=== PATIENT | male | born 2000 | race Caucasian/White ===

== ENCOUNTER 2023-01-25 11:34 | Emergency (ER) | payer OTHER, SELFPAY ==
[2023-01-25 11:44] VITALS: BP 128/70; PULSE 78; RESP 16; TEMP 36.7; O2SAT 100
--- NOTE | 2023-01-25 12:23 | ED.EYEPROB ---
HPI - Eye Problem General Chief complaint: Eye Problems Stated complaint: rt eye irritation Time Seen by Provider: 01/25/23 12:18 Source: patient, RN notes reviewed and old records reviewed Mode of arrival: ambulatory Limitations: no limitations History of Present Illness HPI Narrative: 22 year old male who presents to [facility] care with complaints of 9 day history of red irritated eyes especially his right. Patient denies any drainage from eyes or any morning crusting. He reports that he took Claritin and he has been taking some OTC allergy eye drops 2x day which has helped but has not resolved his symptoms. Patient reports that his eyes feel irritated and dry, reports that initially eyes were itchy but that has improved. Patient denies any known foreign body feeling or any change in vision. MD chief complaint: eye redness Onset (ago): day(s) (9) Treatments Prior to Arrival: other (allergy eye drops, Claritin) Related Data Allergies Allergy/AdvReac Type Severity Reaction Status Date / Time No Known Allergies Allergy Verified 01/25/23 12:01 Review of Systems Review of Systems: CONSTITUTIONAL: Denies fever, chills, or sweats. EYES: Denies visual changes. Reports redness, irritation,no discharge or crusting. ENT: Denies rhinorrhea, congestion, sore throat, or otalgia. CARDIOVASCULAR: Denies chest pain, palpitations, or edema. RESPIRATORY: Denies cough or dyspnea. SKIN: Denies rash or itching. NEUROLOGIC: Denies headache All systems reviewed & are unremarkable except as noted in HPI and below PMFSH Past Medical History Medical History (Updated 01/25/23 @ 17:04 by Lottie Wolfe NP) Seasonal allergies Surgical History Surgical History (Updated 01/25/23 @ 17:03 by Lottie Wolfe NP) History of placement of ear tubes S/P tonsillectomy and adenoidectomy Social History Social History (Updated 01/25/23 @ 17:03 by Lottie Wolfe NP) Smoking status: Never smoker Alcohol intake: unknown Substance use: never Gender identity (if verbalized by the patient): Male Comments At time of signature, agree with nursing past medical, surgical, social and family history. There is no relevant family history pertinent to the presenting complaint Exam Narrative: GENERAL: Well-appearing, well-nourished, and in no acute distress. HEAD: Normocephalic, atraumatic. EYES: PERRLA and EOMI. Upper and lower eyelids unremarkable. No periorbital cellulitis noted. Sclera and conjunctivae clear with feelings of irritation.no drainage noted denies any foreign body feeling or any change in vision. no puffiness of eyes ENT: Nares clear, no rhinorrhea or epistaxis. Mucous membranes moist.TM's normal with good light reflex, throat pink with no swelling. NECK: Supple. no Lymphadenopathy CHEST: Clear to auscultation. No respiratory distress. SAO2 100% on room air HEART: Regular rate and rhythm. No murmur heard. Normal peripheral pulses. SKIN: Warm, dry, no rash. NEURO: No focal deficits. Alert and oriented x3. Course Course Emergency Course: Patient is aware of diagnosis, understands and agrees to treatment plan. Anticipatory guidance given. Patient agrees to follow-up as directed and is aware of reasons to seek care at the emergency department. Portions of this record may have been created with voice recognition software Level of Care: Express Care Visit Vital Signs Vital signs: Vital Signs Temperature 36.7 C 01/25/23 11:44 Pulse Rate 78 01/25/23 11:44 Respiratory Rate 16 01/25/23 11:44 Blood Pressure 128/70 01/25/23 11:44 Pulse Oximetry 100 01/25/23 11:44 Temperature 36.7 C 01/25/23 11:44 Pulse Rate 78 01/25/23 11:44 Respiratory Rate 16 01/25/23 11:44 Blood Pressure 128/70 01/25/23 11:44 Pulse Oximetry 100 01/25/23 11:44 Reviewed MDM - Eye Problem MDM Narrative Medical decision making narrative: Consideration of the following conditions may be warranted for the prese
== END 2023-01-25 12:42 | disposition home or self-care (01) ==
PROVIDERS: Emergency Provider Registered Nurse
DX: H10.13 Acute atopic conjunctivitis, bilateral (principal)
CPT/HCPCS: 99213; G0463